=== PATIENT | female | born 1965 | race Caucasian/White ===

== ENCOUNTER 2020-01-10 14:15 | Outpatient (CLI) | payer OTHER ==
[2014-10-02 14:20] VITALS: BMI 33.2
[~2020-01-10 14:15] MED LIST: IBUPROFEN600 MG PO; MELATONIN 3 MG1 TAB PO; PERCOCET 5-3251 TAB PO; ZANTAC150 MG PO
== END 2020-01-10 15:00 | disposition home or self-care (01) ==
LOC: D.MAMMO 14:15
PROVIDERS: ATTEND Internal Medicine
DX: Z12.31 Encounter for screening mammogram for malignant neoplasm of breast (principal)